=== PATIENT | female | born 1960 | race Hispanic/Latino ===

== ENCOUNTER → 2017-04-21 | Day surgery (SDC) | payer OTHER ==
[2017-04-20 12:17] LABS: BLOOD UREA NITROGEN 17 mg/dL (7-26); BUN/CREATININE RATIO 22 (6-25); CALCIUM 9.4 mg/dL (8.4-10.2); CARBON DIOXIDE 24 mmol/L (22-29); CHLORIDE 106 mmol/L (98-107); CREATININE, SERUM 0.78 mg/dL (0.57-1.11); EST GLOMERULAR FILTRATION RATE > 60 ML/MIN (60-); GLUCOSE 205 mg/dL (74-118); SODIUM 141 mmol/L (136-145)
[~2017-04-21] MED LIST: BELLADONNA/OPIUM 60 MG SUPP PR ONE; CEFTRIAXONE SOD 1 GM VIAL ONE; COMBIGAN EYE DRO5 ML OU; DEXAMETHASONE SOD PHOS INJ 4 MG/ML VIAL ONE; FENTANYL CITRATE/PF 100MCG/2 ML INJ ONE; IOPAMIDOL 610MG/1ML 300 MG/ML VIAL IV ONE; LATANOPROST2.5 ML OU; LIDOCAINE HCL 2% LOCAL INJ 5 ML SDV VIAL INJ ONE; LOVASTATIN20 MG PO; MIDAZOLAM HCL 2 MG/2 ML VIAL ONE; NOVOLOG MI100 UNITS/ SQ; ONDANSETRON HCL INJ 2 MG/ML VIAL ONE; PROPOFOL IV EMULSION 10 MG/ML 20 ML VIAL ONE; SEVOFLURANE INHAL SOLN 250 ML PEN BTL ONE; XIGDUO PO; [UNRECOGNIZED DRUG - OTHER]; [UNRECOGNIZED DRUG - OTHER] PO
--- NOTE | 2017-04-21 07:48 | Diagnostic Imaging Report ---
PROCEDURE:X-RAY ABDOMEN - KUB COMPARISON:Patients [facility], DX, ABDOMEN-1VIEW (KUB), 11/04/2016, 16:35. INDICATIONS:PRE OP LITHOTRIPSY FINDINGS: There are no dilated loops of bowel to suggest obstruction. There are no masses. There are 2 small left lower pole renal stones with the largest measuring 3-4 mm. There is no evidence of free air. No acute osseous abnormalities are present. Degenerative changes of the spine. CONCLUSION: 1. No acute abdominal abnormality. 2. Left lower Pole renal lithiasis. Roman Nick D.O. Dictated by: Roman Nick D.O. on 04/21/2017 at 7:56 Electronically approved by: Roman Nick D.O. on 04/21/2017 at 7:56
--- NOTE | 2017-05-27 05:36 | Operative Report ---
DATE OF PROCEDURE: April 21, 2017 PREOPERATIVE DIAGNOSES 1. Left nephrolithiasis. 2. Urinary tract infections. POSTOPERATIVE DIAGNOSES 1. Left nephrolithiasis. 2. Urinary tract infections. 3. Mild cystocele. 4. Atrophic (senile) vaginitis. OPERATIONS PERFORMED: Note these were all staged procedures as part of multistage, multistep process of managing urolithiasis. 1. Left-sided extracorporeal shockwave lithotripsy (separate procedure performed for the diagnosis of stone done from a separate approach). 2. Cystourethroscopy with bilateral ureteral catheterization and retrograde ureteropyelography (separate procedure performed for the urinary tract infections). 3. Interpretation of retrograde ureteropyelography. 4. Supervision of fluoroscopy. No radiologist present. 5. Pelvic examination under anesthesia. ANESTHESIA: General. COMPLICATIONS: None. CLINICAL SUMMARY: Elizabeth Hernandez is a 57-year-old woman with the above preoperative diagnoses. She is brought for the above procedures. She is aware of the risks of bleeding, infection, injury to adjacent structures, need for additional procedures and elected to proceed. OPERATIVE PROCEDURE IN DETAIL: Informed consent was verified. Elizabeth Hernandez was properly identified, taken to the operating room, placed on the lithotripsy table in a supine position. Anesthesia was uneventfully begun. The patient's left lower pole nephrolithiasis was localized with biplanar fluoroscopy. A total of 3000 shocks were delivered to the 5-mm stone with good fragmentation noted. The patient was then carefully and gently repositioned in dorsal lithotomy position with all pressure points well padded. Her genitalia were prepared and draped in usual sterile fashion. The 22.5-Tamazight cystoscope sheath with obturator in place was atraumatically inserted into the patient's urethra and the bladder was drained. Panendoscopy of the urinary bladder revealed no suspicious mucosal lesions, no tumors, no stones and no diverticula. Normally positioned and configured ureteral orifices were identified. Ureteral catheter was used to cannulate each ureter and retrograde ureteropyelography was performed. Interpretation of retrograde ureteropyelography: Contrast was instilled in retrograde fashion bilaterally. There were no tumors and no diverticula. There was filling defect in the left lower pole that corresponded to the region where we performed lithotripsy. Unobstructed drainage was observed fluoroscopically and there was no hydronephrosis. The patient's bladder was drained following reexamination. The patient did have multiple small nodules which could be consistent with chronic urinary tract infection. Pelvic examination under anesthesia revealed a minimal cystocele with atrophic vaginitis. The patient was then uneventfully reversed from anesthesia and taken to recovery room in stable condition. There were no complications to the procedure. The patient tolerated the procedure well. She was prescribed antibiotics and we plan to follow her up in the office. Job#: [id number] SYLVIE
== END | disposition home or self-care (01) ==
LOC: OR 07:11
PROVIDERS: ATTEND Urology
DX: N20.0 Calculus of kidney (principal); N39.0 Urinary tract infection, site not specified; N81.10 Cystocele, unspecified; N95.2 Postmenopausal atrophic vaginitis; E11.9 Type 2 diabetes mellitus without complications; I10 Essential (primary) hypertension; R00.1 Bradycardia, unspecified; Z01.810 Encounter for preprocedural cardiovascular examination; Z01.812 Encounter for preprocedural laboratory examination; Z79.4 Long term (current) use of insulin
CPT/HCPCS: 36415 ×2; 50590; 74000; 80048; 82948; 93005; C1758; J0696; J1100; J2001; J2250; J2405; Q9967

== ENCOUNTER → 2017-11-24 | Outpatient (CLI) | payer OTHER ==
[~2017-11-24] MED LIST changes: -BELLADONNA/OPIUM 60 MG SUPP PR ONE; -CEFTRIAXONE SOD 1 GM VIAL ONE; -DEXAMETHASONE SOD PHOS INJ 4 MG/ML VIAL ONE; -FENTANYL CITRATE/PF 100MCG/2 ML INJ ONE; -IOPAMIDOL 610MG/1ML 300 MG/ML VIAL IV ONE; -LIDOCAINE HCL 2% LOCAL INJ 5 ML SDV VIAL INJ ONE; -MIDAZOLAM HCL 2 MG/2 ML VIAL ONE; -ONDANSETRON HCL INJ 2 MG/ML VIAL ONE; -PROPOFOL IV EMULSION 10 MG/ML 20 ML VIAL ONE; -SEVOFLURANE INHAL SOLN 250 ML PEN BTL ONE
--- NOTE | 2017-11-24 15:26 | Diagnostic Imaging Report ---
PROCEDURE:X-RAY ABDOMEN - KUB COMPARISON:KUB 04/21/17. INDICATIONS:CALCULUS OF KIDNEYS FINDINGS: Right upper quadrant cholecystectomy clips. There are no dilated loops of bowel to suggest obstruction. There are no masses. There is no evidence of free air. No acute osseous abnormalities are present. Degenerative changes in the spine. 2 small punctate calcification in the lower pole of the left kidney. CONCLUSION: 2 small left renal stones. Dictated by: Kory Carney M.D. on 11/24/2017 at 15:31 Electronically approved by: Kory Carney M.D. on 11/24/2017 at 15:31
== END ==
LOC: RAD 14:20
PROVIDERS: ATTEND Urology
DX: N20.0 Calculus of kidney (principal)
CPT/HCPCS: 74018

== ENCOUNTER → 2018-04-12 | Outpatient (CLI) | payer OTHER ==
--- NOTE | 2018-04-12 16:02 | Diagnostic Imaging Report ---
Exam: X-RAY ABDOMEN- KUB Clinical History: Renal calculus Comparison: KUB 04/21/2017. Findings: There are two small left lower pole renal calcifications measuring 3 mm and 2 mm, similar to KUB on 04/21/2017. No calcifications are identified overlying the right kidney or expected course of the ureters. Left pelvic phleboliths are present. There is a nonobstructive bowel gas pattern. There is no free intraperitoneal air. No acute bony findings. Status post cholecystectomy. Impression: Punctate 2-3 mm left lower pole renal stones, similar to the KUB on 04/21/2017. Signed by: Dr. Josselin Walker MD on 04/12/2018 3:59 PM
== END ==
LOC: RAD 14:00
PROVIDERS: ATTEND Urology
DX: Z09 Encounter for follow-up examination after completed treatment for conditions other than malignant neoplasm (principal); N20.0 Calculus of kidney
CPT/HCPCS: 74018

== ENCOUNTER 2018-05-07 18:25 | Emergency (ER) | payer OTHER ==
[~2018-05-07] VITALS: Ht 160 cm; Wt 93.0 kg
--- OUTSIDE RECORDS SUMMARY | 2018-05-07 18:27 | XMS REPORT ---
Author Author [facility] Address Unknown Phone Unavailable Care Team Providers Care [employer] Main Fitter Name Role Phone RAYNA FONTANA Unavailable Unavailable Problems This patient has no known problems. Allergies, Adverse Reactions, Alerts This patient has no known allergies or adverse reactions. Medications This patient has no known medications. Results Test Description Test Time Test Comments Text Results Atomic Results Result Comments ABDOMEN-1VIEW (KUB) 2018-04-12 15:53:00 [place] [address] Patient Name: RICHARD RAMOS MR #: [id number] : 1960 Age/Sex: 58/F Req #: [id number] Adm Physician: Ordered by: RAYNA FONTANA MD Report #: [id number] Location: [facility] Room/Bed: Procedure: [id number] DX/ABDOMEN-1VIEW (KUB) Exam Date: 04/12/18 Exam Time: 1420 REPORT STATUS: Signed Exam: X-RAY ABDOMEN- KUB Clinical History: Renal c alculus Comparison: KUB 04/21/2017. Findings: There are two small left lower pole renal calcifications measuring 3 mm and 2 mm, similar to KUB on 04/21/2017. No calcifications are identified overlying the right kidney or expected course of the ureters. Left pelvic phleboliths are present. There is a nonobstructive bowel gas pattern. There is no free intraperitoneal air. No acute bony findings. Status post cholecystectomy. Impression: Punctate 2-3 mm left lower pole renal stones, similar to the KUB on 04/21/2017. Signed by: Dr. Holli Parra MD on 04/12/2018 3:59 PM Dictated By: HOLLI PARRA MD 57 Transcribed By: HALEY on 04/12/181558 COPY TO: RAYNA FONTANA MD ABDOMEN-1VIEW (KUB) 2017-11-24 15:31:00 [place] [address] Patient Name: RICHARD RAMSO MR #: [id number] : 1960 Age/Sex: 57/F Req #: [id number] Adm Physician: Ordered by: RAYNA FONTANA MD Report #: [id number] Location: [facility] Room/Bed: Procedure: [id number] DX/ABDOMEN-1VIEW (KUB) Exam Date: 11/24/17 Exam Time: 1456 REPORT STATUS: Signed PROCEDURE: X-RAY ABDOMEN - KUB COMPARISON: KUB 04/21/17. INDICATIONS: CALCULUS OF KIDNEYS FINDINGS: Right upper quadrant cholecystectomy clips. There are no dilated loops of bowel to suggest obstruction. There are no masses. There is no evidence of free air. No acute osseous abnormalities are present. Degenerative changes in the spine. 2 small punctate calcification in the lower pole of the left kidney. CONCLUSION: 2 small left renal stones. Dictated by: Tomas Carney M.D. on 11/24/2017 at 15:31 Electronically approved by: Tomas Carney M.D. on 11/24/2017 at 15:31 Dictated By: TOMAS CARNEY MD 1531 Transcribed By: LISA on 11/24/17 1531 COPY TO: RAYNA FONTANA MD ABDOMEN-1VIEW (KUB) [place] [address] Patient Name: RICHARD RAMOS MR #: [id number] : 1960 Age/Sex: 57/F Req #: [id number] Adm Physician: Ordered by: RAYNA FONTANA MD Report #: [id number] Location: OR Room/Bed: Procedure: [id number] DX/ABDOMEN-1VIEW (KUB) Exam Date: 04/21/17 Exam Time: 0700 REPORT STATUS: Signed PROCEDURE: X-RAY ABDOMEN - KUB COMPARISON: [facility], DX, ABDOMEN-1VIEW (KUB), 11/04/2016, 16:35. INDICATIONS: PRE OP LITHOTRIPSY FINDINGS: There are no dilated loops of bowel to suggest obstruction. There are no masses. There are 2 small left lower pole renal stones with the largest measuring 3-4 mm. There is no evidence of free air. No acute osseous abnormalities are present. Degenerative changes of the spine. CONCLUSION: 1. No acute abdominal abnormality. 2. Left lower Pole renal lithiasis. Arpit Nick D.O. Dictated by: Arpit Nick D.O. on 04/21/2017 at 7:56 Electronically approved by: Arpit Nick D.O. on 04/21/2017 at 7:56 Dictated By: ARPIT NICK DO 0756 Transcribed By: INFCE on 04/21/17 0756 COPY TO: RAYNA FONTANA MD
[2018-05-07] MEDS ORDERED: ONDANSETRON HCL INJ 2 MG/ML VIAL IV NR (18:50)
[2018-05-07] MEDS ORDERED: SODIUM CHLORIDE 0.9% 1000ML 1,000 ML IV STA (18:50)
[2018-05-07] MEDS ORDERED: HYDROMORPHONE 2MG/ML 2 MG/ML ML IV NR (19:15)
[2018-05-07 19:29] LABS: BASOPHILS % 0.6 % (0.0-1.0); HEMATOCRIT 41.2 % (34.2-44.1); HEMOGLOBIN 13.3 g/dL (12.0-16.0); LYMPHOCYTES # (AUTO) 0.9 (1.0-3.2); LYMPHOCYTES % 16.7 % (18.0-39.1); MEAN CORPUSCULAR HEMOGLOBIN 27.7 pg (28-32); MEAN CORPUSCULAR HGB CONC 32.3 g/dL (31-35); MEAN CORPUSCULAR VOLUME 85.7 fL (81-99); MONOCYTES # (AUTO) 0.3 (0.2-0.8); MONOCYTES % 5.1 % (4.4-11.3); PLATELET COUNT 144 x10e3/uL (140-360); RED BLOOD COUNT 4.81 x10e6/uL (3.6-5.1); RED CELL DISTRIBUTION WIDTH 13.9 % (11.7-14.4)
[2018-05-07 19:47] LABS: ALANINE AMINOTRANSFERASE 34 IU/L (0-55); ALBUMIN 3.6 g/dL (3.5-5.0); ALBUMIN/GLOBULIN RATIO 0.9 (0.8-2.0); ALKALINE PHOSPHATASE 68 IU/L (40-150); AMYLASE 55 U/L (25-125); ANION GAP 17.7 mmol/L (8-16); BLOOD UREA NITROGEN 10 mg/dL (7-26); BUN/CREATININE RATIO 12 (6-25); CALCIUM 9.2 mg/dL (8.4-10.2); CARBON DIOXIDE 21 mmol/L (22-29); CHLORIDE 100 mmol/L (98-107); CREATININE, SERUM 0.84 mg/dL (0.57-1.11); EST GLOMERULAR FILTRATION RATE > 60 ML/MIN (60-); GLUCOSE 205 mg/dL (74-118); LIPASE 92 U/L (8-78); POTASSIUM 3.7 mmol/L (3.5-5.1); SODIUM 135 mmol/L (136-145)
--- NOTE | 2018-05-07 19:53 | Diagnostic Imaging Report ---
EXAM: CHEST SINGLE (PORTABLE), AP 1 view INDICATION: Chills, fever COMPARISON: None FINDINGS: LINES/TUBES: None LUNGS: Bronchial thickening without consolidation. PLEURA: No effusions or pneumothorax. HEART AND MEDIASTINUM: Normal size and contour. BONES AND SOFT TISSUES: No acute findings. IMPRESSION: Bronchial thickening without consolidation. Signed by: Dr. Oneida Cali M.D. on 05/07/2018 7:50 PM
[2018-05-07 20:05] LABS: CLARITY,URINE HAZY (CLEAR); COLOR,URINE YELLOW (YELLOW); KETONES,URINE TRACE (NEGATIVE); LEUKOCYTE ESTERASE ,URINE 1+ (NEGATIVE); NITRITE,URINE POSITIVE (NEGATIVE); PROTEIN,URINE DIPSTICK 1+ (NEGATIVE); URINE UROBILINOGEN 0.2 mg/dL (0.2 - 1)
[2018-05-07 20:06] LABS: BILIRUBIN,URINE NEGATIVE (NEGATIVE)
[2018-05-07 20:11] LABS: BACTERIA,URINE MANY /HPF; EPITHELIAL CELLS,URINE FEW /LPF; WBC,URINE (MAN) 21-50 /HPF (0-5)
[2018-05-07 21:17] LABS: LYMPHOCYTES % (MANUAL) 13 % (19-48); MONOCYTES % (MANUAL) 3 % (3.4-9.0); NEUTROPHILS % (MANUAL) 84 % (40-74); PLATELET ESTIMATE ADEQUATE; PLATELET MORPHOLOGY COMMENT NORMAL; RBC MORPHOLOGY COMMENT NORMAL
== END 2018-05-07 20:38 | disposition home or self-care (01) ==
LOC: ER 18:25
DX: R50.9 Fever, unspecified (principal); R05 Cough; J11.1 Influenza due to unidentified influenza virus with other respiratory manifestations; J31.0 Chronic rhinitis; R10.9 Unspecified abdominal pain; E10.65 Type 1 diabetes mellitus with hyperglycemia
CPT/HCPCS: 36415; 71045; 80053; 81001; 82150; 83605; 83690; 85025; 87400; 96374; 99284; J2405; J7030

== ENCOUNTER → 2019-04-03 | Outpatient (CLI) | payer OTHER ==
--- NOTE | 2019-04-03 15:23 | Diagnostic Imaging Report ---
EXAMINATION: CHEST 2 VIEWS INDICATION: Pre-operative COMPARISON: Chest radiograph 05/07/2018 FINDINGS: LINES/TUBES:None LUNGS:The lungs are well-inflated. No focal consolidation or pulmonary edema. PLEURA:No pleural effusion or pneumothorax. MEDIASTINUM:The cardiomediastinal silhouette appears normal in size and shape. BONES/SOFT TISSUES:No acute osseous injury. ABDOMEN:No free air under the diaphragm. Status post cholecystectomy. IMPRESSION: No focal pneumonia or pulmonary edema. Signed by: Kandi Hernández MD on 04/03/2019 3:19 PM
== END ==
LOC: RAD 14:39
PROVIDERS: ATTEND Internal Medicine
DX: Z01.818 Encounter for other preprocedural examination (principal)
CPT/HCPCS: 71046

== ENCOUNTER → 2024-02-04 | Day surgery (SDC) | payer MEDICARE, OTHER ==
[2024-02-03 13:37] LABS: BASOPHILS % 0.4 % (0.0-1.0); EOSINOPHILS # (AUTO) 0.1 (0.0-0.4); EOSINOPHILS % 1.1 % (0.0-6.0); HEMATOCRIT 40.8 % (34.2-44.1); HEMOGLOBIN 12.8 g/dL (12.0-16.0); LYMPHOCYTES # (AUTO) 1.9 (1.0-3.2); LYMPHOCYTES % 23.5 % (18.0-39.1); MEAN CORPUSCULAR HEMOGLOBIN 27.7 pg (28-32); MEAN CORPUSCULAR HGB CONC 31.4 g/dL (31-35); MEAN CORPUSCULAR VOLUME 88.3 fL (81-99); MONOCYTES # (AUTO) 0.7 (0.2-0.8); MONOCYTES % 8.7 % (4.4-11.3); NEUTROPHILS # (AUTO) 5.3 (2.1-6.9); NEUTROPHILS % 65.4 % (38.7-80.0); PLATELET COUNT 168 x10e3/uL (140-360); RED BLOOD COUNT 4.62 x10e6/uL (3.6-5.1); RED CELL DISTRIBUTION WIDTH 13.8 % (11.7-14.4); WHITE BLOOD COUNT 8.16 x10e3/uL (4.8-10.8)
[2024-02-03 13:55] LABS: ANION GAP 15.7 mmol/L (8-16); CALCIUM 9.7 mg/dL (8.4-10.2); CREATININE, SERUM 0.91 mg/dL (0.57-1.11); POTASSIUM 3.7 mmol/L (3.5-5.1); URIC ACID 3.4 mg/dL (2.6-8.0)
[~2024-02-04] MED LIST changes: +ACETAMINOPHEN 1000 MG/100 ML IV ONE; +ATORVASTATIN CA20 MG PO; +COLESTIPOL HCL1 GM PO; +DEXAMETHASONE SOD PHOS INJ 4 MG/ML SDV ONE; +FAMOTIDINE 20 MG/2 ML VIAL IV ONE; +FENTANYL CITRATE/PF 100MCG/2 ML INJ ONE; +IOPAMIDOL 610MG/1ML 300 MG/ML VIAL IV ONE; +LEVOTHYROXINE75 MCG PO; +LIDOCAINE HCL 2% LOCAL INJ 5 ML SDV VIAL INJ ONE; +METFORMIN HCL500 MG PO; +ONDANSETRON HCL INJ 2MG/ML 2ML 2 MG/ML VIAL ONE; +PHENYLEPHRINE HCL 1% 10 MG/ML VIAL ONE; +PROPOFOL IV EMULSION 10 MG/ML 20 ML VIAL ONE; +SEVOFLURANE INHAL SOLN 250 ML PEN BTL ONE
[2024-02-04] MEDS: LACTATED RINGER'S 1,000 ML ONE (06:51)
[2024-02-04] MEDS: CEFTRIAXONE 1 GM VIAL ONE (06:52)
[2024-02-04] MEDS: PHENAZOPYRIDINE HCL 100 MG TAB ONE (10:02)
[2024-02-04 10:14] LABS: CALCIUM 9.2 mg/dL (8.7-10.3)
[2024-02-04 10:25] VITALS: BP 129/60; PULSE 82; RESP 16; O2SAT 94
== END | disposition home or self-care (01) ==
LOC: OR 05:55
PROVIDERS: ATTEND Urology
DX: N20.1 Calculus of ureter (principal); N13.30 Unspecified hydronephrosis; N39.0 Urinary tract infection, site not specified; N81.10 Cystocele, unspecified; N81.6 Rectocele; N95.2 Postmenopausal atrophic vaginitis; I10 Essential (primary) hypertension; E78.5 Hyperlipidemia, unspecified; E11.9 Type 2 diabetes mellitus without complications; E03.9 Hypothyroidism, unspecified; F32.A Depression, unspecified; Z91.040 Latex allergy status; Z01.810 Encounter for preprocedural cardiovascular examination; Z01.818 Encounter for other preprocedural examination; Z01.812 Encounter for preprocedural laboratory examination; Z79.84 Long term (current) use of oral hypoglycemic drugs; Z79.4 Long term (current) use of insulin; Z79.899 Other long term (current) drug therapy
CPT/HCPCS: 36415; 50590; 52332; 71046; 74018; 80048; 83970; 84550; 85025; 87086; 87186; 93005; C1758; C2617; J0131; J0696; J1100; J2001; J2371; J2405; J2704; J3010; J7121; Q9967

== ENCOUNTER → 2024-04-12 | Day surgery (SDC) | payer MEDICARE ==
[2024-04-10 14:52] LABS: BASOPHILS % 0.3 % (0.0-1.0); EOSINOPHILS # (AUTO) 0.4 (0.0-0.4); EOSINOPHILS % 4.5 % (0.0-6.0); HEMATOCRIT 38.4 % (34.2-44.1); HEMOGLOBIN 11.6 g/dL (12.0-16.0); LYMPHOCYTES # (AUTO) 1.3 (1.0-3.2); MEAN CORPUSCULAR HEMOGLOBIN 26.9 pg (28-32); MEAN CORPUSCULAR HGB CONC 30.2 g/dL (31-35); MEAN CORPUSCULAR VOLUME 89.1 fL (81-99); MONOCYTES # (AUTO) 0.6 (0.2-0.8); MONOCYTES % 5.9 % (4.4-11.3); NEUTROPHILS # (AUTO) 7.1 (2.1-6.9); NEUTROPHILS % 74.8 % (38.7-80.0); PLATELET COUNT 216 x10e3/uL (140-360); RED BLOOD COUNT 4.31 x10e6/uL (3.6-5.1); RED CELL DISTRIBUTION WIDTH 14.4 % (11.7-14.4); WHITE BLOOD COUNT 9.52 x10e3/uL (4.8-10.8)
[2024-04-10 15:14] LABS: ANION GAP 14.7 mmol/L (8-16); CALCIUM 9.5 mg/dL (8.4-10.2); CREATININE, SERUM 0.77 mg/dL (0.57-1.11); POTASSIUM 3.7 mmol/L (3.5-5.1); URIC ACID 4.3 mg/dL (2.6-8.0)
[~2024-04-12] MED LIST changes: -ACETAMINOPHEN 1000 MG/100 ML IV ONE; +CEFTRIAXONE 1 GM VIAL ONE; +EPHEDRINE SULFATE INJ 50 MG/ML VIAL ONE; -FAMOTIDINE 20 MG/2 ML VIAL IV ONE; +GENTAMICIN 80MG/NS 100 ML 200 ML IV ONE; -IOPAMIDOL 610MG/1ML 300 MG/ML VIAL IV ONE; +MIDAZOLAM HCL 2 MG/2 ML VIAL ONE; -PHENYLEPHRINE HCL 1% 10 MG/ML VIAL ONE; -SEVOFLURANE INHAL SOLN 250 ML PEN BTL ONE
[2024-04-12] MEDS: LACTATED RINGER'S 1,000 ML ONE (06:31)
[2024-04-12 09:19] VITALS: TEMP 98.6
[2024-04-12] MEDS: PHENAZOPYRIDINE HCL 100 MG TAB ONE (09:41)
[2024-04-12 10:30] VITALS: BP 121/60; PULSE 73; RESP 16; O2SAT 97
== END | disposition home or self-care (01) ==
LOC: OR 05:50
PROVIDERS: ATTEND Urology
DX: Z46.6 Encounter for fitting and adjustment of urinary device (principal); N20.0 Calculus of kidney; N81.10 Cystocele, unspecified; N81.6 Rectocele; N36.41 Hypermobility of urethra; N95.2 Postmenopausal atrophic vaginitis; N30.20 Other chronic cystitis without hematuria; N28.89 Other specified disorders of kidney and ureter; I10 Essential (primary) hypertension; E78.5 Hyperlipidemia, unspecified; E11.9 Type 2 diabetes mellitus without complications; E03.9 Hypothyroidism, unspecified; Z91.040 Latex allergy status; Z01.812 Encounter for preprocedural laboratory examination; Z01.818 Encounter for other preprocedural examination; Z79.84 Long term (current) use of oral hypoglycemic drugs; Z79.4 Long term (current) use of insulin; Z79.899 Other long term (current) drug therapy
CPT/HCPCS: 36415; 74018; 74420; 80048; 84550; 85025; 87086; C1758; C1769; J0696; J1100; J1580; J2003; J2250; J2405